=== PATIENT | male | born 1955 | race Caucasian/White ===

== ENCOUNTER → 2025-03-06 13:42 | Outpatient (REF) | payer OTHER, SELFPAY | LOC: EMG 13:42 | PROVIDERS: ATTENDING PHYSICIAN Physician Assistant Medical; FAMILY PHYSICIAN Family Medicine | DX: G56.01 Carpal tunnel syndrome, right upper limb (principal); R20.0 Anesthesia of skin | CPT/HCPCS: 95886; 95911 ==